=== PATIENT | male | born 1965 | race Caucasian/White ===

== ENCOUNTER 2022-10-08 15:07 | Emergency (ER) | payer BC | END 2022-10-08 16:25 | disposition home or self-care (01) | LOC: JD.ED 15:07 | DX: Z48.01 Encounter for change or removal of surgical wound dressing (principal); R07.0 Pain in throat; Z88.0 Allergy status to penicillin; Z48.02 Encounter for removal of sutures | CPT/HCPCS: 99282 ==

== ENCOUNTER 2022-11-07 17:34 | Emergency (ER) | payer BC | END 2022-11-07 18:00 | disposition home or self-care (01) | LOC: JD.ED 17:34 | DX: R04.0 Epistaxis (principal); I25.10 Atherosclerotic heart disease of native coronary artery without angina pectoris; I10 Essential (primary) hypertension; E11.9 Type 2 diabetes mellitus without complications; E66.9 Obesity, unspecified; Z88.0 Allergy status to penicillin | CPT/HCPCS: 99283 ==

== ENCOUNTER 2023-03-26 13:27 | Emergency (ER) | payer BC ==
[2023-03-26] MEDS ORDERED: Ondansetron 4 MG Tab.DIS PO ONE (13:53)
[2023-03-26] MEDS ORDERED: Acetaminophen/oxyCODONE 325-5 MG Tab PO ONE (13:53)
== END 2023-03-26 15:10 | disposition home or self-care (01) ==
LOC: JD.ED 13:27
DX: S20.211A Contusion of right front wall of thorax, initial encounter (principal); Z88.0 Allergy status to penicillin; W31.89XA Contact with other specified machinery, initial encounter
CPT/HCPCS: 71046; 93005; 99285; A9270; 93010; 99283

== ENCOUNTER 2023-09-23 14:51 | Emergency (ER) | payer OTHER, BC ==
[2023-09-23] MEDS: Cyclobenzaprine 10 MG Tab PO ONE (16:07)
[2023-09-23] MEDS: Ketorolac 60 MG/2 ML SDV IM ONE (16:07)
== END 2023-09-23 16:38 | disposition home or self-care (01) ==
LOC: JD.ED 14:51
DX: S39.012A Strain of muscle, fascia and tendon of lower back, initial encounter (principal); I10 Essential (primary) hypertension; I25.810 Atherosclerosis of coronary artery bypass graft(s) without angina pectoris; E78.00 Pure hypercholesterolemia, unspecified; E66.9 Obesity, unspecified; E11.9 Type 2 diabetes mellitus without complications; Z88.0 Allergy status to penicillin; Z68.41 Body mass index [BMI] 40.0-44.9, adult; X58.XXXA Exposure to other specified factors, initial encounter
CPT/HCPCS: 96372; 99283; A9270; J1885